=== PATIENT | male | born 1975 | race Native Hawaiian/Other Pacific Islander ===

== ENCOUNTER 2017-01-06 13:56 | Emergency (ER) | payer BC ==
[2017-01-06] MEDS ORDERED: ONDANSETRON 4 MG/2ML 2 ML VIAL ONE (15:42)
[2017-01-06] MEDS ORDERED: SODIUM CHLORIDE 0.9% 1,000 ML ONE (15:42)
[2017-01-06 16:28] LABS: ABSOLUTE NEUTROPHIL COUNT 3.8 K/mm3 (1.8-7.7); BASO % 0.2 % (0.2-1.0); EOS # 0.1 (0.0-0.5); EOS % 1.2 % (0.9-2.9); HEMATOCRIT 49.3 % (32.0-52.0); HEMOGLOBIN 16.2 gm/l (14.0-18.0); IMM NEUT% 0.4 % (0-1); LYMPH % 19.5 % (15-45); MEAN CELL VOLUME 84.6 fl (80.0-94.0); MEAN CORPUSCULAR HEMOGLOBIN 27.8 pg (27.0-31.0); MEAN CORPUSCULAR HGB CONC 32.9 g/dl (33.0-37.0); MEAN PLATELET VOLUME 9.9 fl (7.4-10.4); MONO # 0.3 (0.0-0.8); MONO % 5.4 % (4-12); NEUT % 73.3 % (43-75); PLATELET COUNT 224 K/mm3 (130-400); RED CELL DISTRIBUTION WIDTH 12.9 % (11.5-14.5)
[2017-01-06 17:00] LABS: ALB/GLOB RATIO 1.3 (>1.0); ALBUMIN 4.4 gm/dL (3.5-5.7); CALCIUM 9.5 mg/dL (8.6-10.3)
[2017-01-06 17:29] LABS: SPECIFIC GRAVITY 1.025 (1.001-1.030); URINE BILIRUBIN NEGATIVE (NEGATIVE); URINE BLOOD 3+ (NEGATIVE); URINE GLUCOSE (UA) NEGATIVE (NEGATIVE); URINE LEUKOCYTE ESTERASE TRACE (NEGATIVE); URINE NITRITE NEGATIVE (NEGATIVE); URINE PROTEIN NEGATIVE (NEGATIVE); URINE UROBILINOGEN NORMAL (0-1 mg/dl)
[2017-01-06 17:30] LABS: URINE APPEARANCE CLEAR; URINE COLOR YELLOW
[2017-01-06 17:36] LABS: URINE BACTERIA FEW; URINE EPITHELIAL CELLS RARE /hpf; URINE MUCUS 1+
[2017-01-06] MEDS ORDERED: CEFTRIAXONE 1 GRAM DUPLEX 50 ML IV ONE (17:54)
== END 2017-01-06 18:47 | disposition home or self-care (01) ==
LOC: ED 13:56
DX: N39.0 Urinary tract infection, site not specified (principal); B34.9 Viral infection, unspecified; R11.2 Nausea with vomiting, unspecified; F17.220 Nicotine dependence, chewing tobacco, uncomplicated
CPT/HCPCS: 85025; 87086; 80053; 81001; 87804; 96375; 99283 ×2; 96361 ×2; 96365; J2405; J7030; J0696